=== PATIENT | female | born 1990 | race Two or more races ===

== ENCOUNTER 2016-10-23 18:34 | Inpatient (IN) | payer OTHER ==
[~2016-10-23] VITALS: Ht 157.5 cm; Wt 68.2 kg
[2016-10-23] MEDS ORDERED: OXYTOCIN 30U/ 0.9% NaCL 500ML 500 ML IV ONE (18:50)
[2016-10-23] MEDS ORDERED: D5%-LACTATED RINGERS 1,000 ML IV SCH (18:50)
[2016-10-23 18:55] VITALS: BP 122/75
[2016-10-23] MEDS ORDERED: FENTANYL PF 100 MCG/2ML IVPush PRN (19:00)
[2016-10-23] MEDS ORDERED: PLEASE ENTER HEIGHT AND WEIGHT MC SCH (19:00)
[2016-10-23] MEDS ORDERED: FENTANYL PF 100 MCG/2ML IV PRN (19:00)
[2016-10-23] MEDS ORDERED: ONDANSETRON 2MG/ML, 2ML IVPush PRN (19:00)
[2016-10-23] MEDS ORDERED: PLEASE ENTER ALLERGIES MC SCH ×2 (19:00)
[2016-10-23] MEDS ORDERED: PREN1TAB60 PO (19:10)
[2016-10-23] MEDS ORDERED: OXYTOCIN 30U/ 0.9% NaCL 500ML 500 ML IV PRN (19:48)
[2016-10-23] MEDS ORDERED: NEWBORN KIT ONE (19:53)
[2016-10-23] MEDS ORDERED: OXYTOCIN 30U/ 0.9% NaCL 500ML 500 ML ONE (19:53)
[2016-10-23] MEDS ORDERED: MISOPROSTOL 200 MCG TABLET ONE (19:53)
[2016-10-23] MEDS ORDERED: LIDOCAINE 1%, 20ML ONE (19:53)
[2016-10-24] MEDS: LACTATED RINGERS 1,000 ML IV SCH ×2 (01:21→04:35)
[2016-10-24] MEDS ORDERED: FENTANYL/BUPIV./NS/PF 250 ML EPIDCONT ONE (04:49)
[2016-10-24] MEDS ORDERED: LIDOCAINE/PF 1.5%-EPI 1:200K, 30ML ONE (04:49)
[2016-10-24] MEDS ORDERED: FENTANYL/BUPIV./NS/PF 250 ML EPIDCONT SCH (05:23)
[2016-10-24] MEDS ORDERED: LACTATED RINGERS 1,000 ML IV SCH (05:23)
[2016-10-24] MEDS ORDERED: LACTATED RINGERS 1,000 ML IVBOLUS PRN (05:30)
[2016-10-24] MEDS ORDERED: HYDROcodone/APAP 5/325 TABLET PO PRN ×2 (10:00)
[2016-10-24] MEDS ORDERED: METHYLERGONOVINE 0.2 MG/ML IM PRN (10:00)
[2016-10-24] MEDS ORDERED: MISOPROSTOL 200 MCG TABLET PR PRN (10:00)
[2016-10-24] MEDS ORDERED: ONDANSETRON 2MG/ML, 2ML IV PRN (10:00)
[2016-10-24] MEDS ORDERED: ACETAMINOPHEN 325 MG TABLET PO PRN (10:00)
[2016-10-24] MEDS ORDERED: IBUPROFEN 600 MG TABLET ONE (10:08)
[2016-10-24] MEDS ORDERED: OXYTOCIN 30U/ 0.9% NaCL 500ML 500 ML ONE (10:08)
[2016-10-24] MEDS: IBUPROFEN 600 MG TABLET PO PRN ×2 (10:44→20:54)
[2016-10-24] MEDS: OXYTOCIN 30U/ 0.9% NaCL 500ML 500 ML IV SCH ×2 (10:44→19:55)
[2016-10-24 11:20] VITALS: BP 107/70
[2016-10-24] MEDS: DOCUSATE 100 MG CAPSULE PO PRN ×2 (12:50→20:54)
[2016-10-24 16:00] VITALS: BP 108/71
[2016-10-24] MEDS ORDERED: DIPH,PERTUSS(ACELL),TET VAC/PF NC IM-VACC ONE ×2 (18:05→18:10)
[2016-10-24 19:25] VITALS: BP 105/66
[2016-10-25 00:15] VITALS: BP 101/70
[2016-10-25] MEDS: IBUPROFEN 600 MG TABLET PO PRN ×2 (03:04→08:27)
[2016-10-25 05:15] VITALS: BP 114/64
[2016-10-25] MEDS: OXYTOCIN 30U/ 0.9% NaCL 500ML 500 ML IV SCH (05:55)
[2016-10-25 07:20] VITALS: BP 98/63
[2016-10-25] MEDS: DOCUSATE 100 MG CAPSULE PO PRN (08:27)
[2016-10-25] MEDS ORDERED: PRENATAL VIT/IRON/FA 1 EACH TABLET PO SCH (09:00)
[2016-10-25] MEDS ORDERED: IBUP-1222 PO (09:25)
[2016-10-25] MEDS ORDERED: HYDR-3240 PO (09:25)
[2016-10-25] MEDS ORDERED: DOCU-30 PO (09:26)
== END 2016-10-25 15:17 | disposition home or self-care (01) | DRG 775 ==
LOC: LDIP 18:34 → 2NW 10-24 11:25
PROVIDERS: ADMIT Obstetrics & Gynecology; ATTEND Obstetrics & Gynecology
PROC: 0KQM0ZZ Repair Perineum Muscle, Open Approach (ICD-10-PCS; principal; 2016-10-24)
PROC: 10E0XZZ Delivery of Products of Conception, External Approach (ICD-10-PCS; 2016-10-24)
PROC: 00HU33Z Insertion of Infusion Device into Spinal Canal, Percutaneous Approach (ICD-10-PCS; 2016-10-24)
PROC: 3E0R3CZ (ICD-10-PCS; 2016-10-24)
PROC: 10907ZC Drainage of Amniotic Fluid, Therapeutic from Products of Conception, Via Natural or Artificial Opening (ICD-10-PCS; 2016-10-24)
DX: O42.92 Full-term premature rupture of membranes, unspecified as to length of time between rupture and onset of labor (principal); O76 Abnormality in fetal heart rate and rhythm complicating labor and delivery; Z37.0 Single live birth; Z3A.39 39 weeks gestation of pregnancy; O70.1 Second degree perineal laceration during delivery
CPT/HCPCS: 36415; 85025; 86850; 86900; 90715; J2590; J7120; J7121